=== PATIENT | male | born 1955 | race Caucasian/White ===

== ENCOUNTER 2019-11-09 07:01 | Day surgery (SDC) | payer BC ==
[2019-11-08 11:18] VITALS: BMI 30.7
[2019-11-09] MEDS ORDERED: Ketorolac Tromethamine 30 MG/ML VIAL ONE ×2 (08:03→11:16)
--- NOTE | 2019-11-09 08:23 | HP ---
SUBJECTIVE: Lissette is a 64-year-old male, who does ranch work, very active, has had a right inguinal hernia for some time. He has been able to reduce it, but it is becoming larger and more bothersome. Plan is to repair this robotically. There is some suspicion of a left inguinal hernia, but it is asymptomatic and equivocal findings on exam. Plan is to repair that with mesh if found. ALLERGIES: NONE. SOCIAL HISTORY: Tobacco, none. Alcohol, rarely/infrequently. Occasional beer. MEDICATIONS: 1. Hydralazine. 2. Hydrochlorothiazide. 3. A medication for restless legs syndrome. PAST SURGICAL HISTORY: Noncontributory. Colonoscopy 10 years ago. Hand surgery at 16 years of age. REVIEW OF SYSTEMS: Noncontributory. PHYSICAL EXAMINATION: GENERAL: 230 pounds, 72 inches, 31 BMI. VITAL SIGNS: Blood pressure 155/85, heart rate 87, and temperature 99 degrees. HEAD, EARS, EYES, NOSE, AND THROAT: Unremarkable. NEURO: GCS 15. Neurologically intact without deficit. LYMPH NODES: No lymphadenopathy of neck, axilla, or groins. LUNGS: Clear to auscultation. CARDIAC: Regular rate and rhythm without murmur or gallop. ABDOMEN: Soft and nontender. : Testicles normal. Right inguinal hernia present on standing, enlarged on Valsalva. Left groin without evident hernia, although slight bulge of the external ring of equivocal findings. EXTREMITIES: Unremarkable. ASSESSMENT AND PLAN: Right inguinal hernia. PLAN: 1. Robot laparoscopic mesh repair, outpatient, cord induration and swelling. Reassurance this will resolve with time discussed, questions answered. Risks of infection, bleeding, reoperation, and chronic pain discussed. 2. Possible left inguinal hernia, equivocal findings on exam, asymptomatic. We will plan evaluation laparoscopically/robotically and if present, plan mesh repair. Job ID: [id number]
[2019-11-09 08:33] LABS: #Basophils 0.1 thou/uL (0.0-0.2); #Eosinphils 0.1 thou/uL (0.0-0.7); #Monocytes 0.7 thou/uL (0.11-0.59); #Neutrophils 8.4 thou/uL (1.40-6.50); %Basophils 0.5 % (0.0-1.0); %Eosinophils 0.8 % (0.0-10.0); %Lymphocytes 17.6 % (21.0-51.0); %Monocytes 6.3 % (0.0-10.0); %Neutrophils 74.8 % (42.0-75.0); Hemoglobin 15.4 g/dL (14.0-18.0); Mean Corpuscular HGB CONC 32.8 g/dL (32.0-36.0); Mean Corpuscular Hemoglobin 31.2 pg (27.0-31.0); Mean Corpuscular Volume 95.1 fL (78.0-98.0); Mean Platelet Volume 8.4 fL (7.4-10.4); Platelet Count 216 thou/uL (130-400); RBC Distribution Width 12.3 % (11.5-14.5); Red Blood Cell (RBC) Count 4.93 mill/uL (4.70-6.10); White Blood Cell (WBC) Count 11.2 thou/uL (4.8-10.8)
[2019-11-09 08:42] LABS: Anion Gap 10 mmol/L (10-20); BUN (Urea Nitrogen) 24 mg/dL (8.4-25.7); Calc. Creatinine Clearance 128 mL/min (70-130); Calcium 9.4 mg/dL (7.8-10.44); Carbon Dioxide 30 mmol/L (23-31); Chloride 105 mmol/L (98-107); Estimated GFR-MDRD 89; Glucose 101 mg/dL (80-115); Potassium 4.3 mmol/L (3.5-5.1); Sodium 141 mmol/L (136-145)
[2019-11-09] MEDS ORDERED: Bupivacaine 0.25% HCL 30 ML VIAL ONE (08:48)
[2019-11-09] MEDS ORDERED: Midazolam HCl 2 mg/2 ml Vial ONE (08:52)
[2019-11-09] MEDS ORDERED: Fentanyl 100 MCG/2 ML VIAL ONE (08:52)
[2019-11-09] MEDS ORDERED: Lidocaine 1% w/Epinephrine 1:100K 20 ML VIAL ONE (09:28)
[2019-11-09] MEDS ORDERED: PROPOFOL 200 MG/20 ML VIAL ONE (11:16)
[2019-11-09] MEDS ORDERED: Rocuronium Bromide 10 MG/ML (10ML VIAL) ONE (11:16)
[2019-11-09] MEDS ORDERED: Lidocaine 1% PF 5 ML VIAL ONE (11:16)
[2019-11-09] MEDS ORDERED: PHENYLEPHRINE-NS 100 MCG/ML 10 ML SYRINGE ONE (11:16)
--- NOTE | 2019-11-09 17:58 | OP ---
DATE OF PROCEDURE: 11/09/2019 PREOPERATIVE DIAGNOSIS: Right inguinal hernia. POSTOPERATIVE DIAGNOSIS: Right inguinal hernia. PROCEDURE PERFORMED: Robot laparoscopic 3D Bard Max mesh repair, right inguinal hernia. ANESTHESIA: General, local of 0.5% Marcaine 30 mL mixed with 1% Xylocaine with epinephrine 30 mL. DESCRIPTION OF PROCEDURE: The patient was taken to the operating room, where under general anesthesia, Pino catheter was placed at the beginning of the procedure and removed at the end. Abdomen was clipped of hair, prepared with ChloraPrep, and draped in routine fashion. The patient was placed in slight Trendelenburg. A supraumbilical left to midline incision was made. Pneumoperitoneum to 15 mmHg was established with Veress needle, replaced with an 11 mm balloon port, and video laparoscope was inserted. Bilateral midabdominal lateral incisions were made, 8 mm ports were placed, right and left. Robot was docked. Instruments were applied under visualization. Robot right inguinal hernia repair was undertaken. An indirect hernia defect was noted on the right. Left groin was without hernia. Peritoneal flap was dissected free superiorly, inferiorly, laterally to the retroperitoneum, and medially to the Tien ligament visualizing it, and slightly posterior. Indirect hernia sac was dissected free carefully preserving the cord structures. Once it was adequately dissected free exposing 6 to 8 cm of the cord structures, the 3D Bard mesh, right, was placed in the preperitoneal space and secured to Tien ligament medially with 2-0 Vicryl suture and laterally to the anterior abdominal wall and superiorly with 2-0 Vicryl suture. Upon proper placement and good hemostasis noted, peritoneal flap was closed with continuous suture of 3-0 Stratafix. Once this was complete, hernia repair looked great. Pneumoperitoneum was reduced. All instruments were removed. Rectus fascia anteriorly was approximated with 0 Vicryl on UR needle, and skin incisions with interrupted subdermal 4-0 Monocryl, and [place] glue was applied. The patient tolerated the procedure well. Job ID: [id number]
== END 2019-11-09 13:20 | disposition home or self-care (01) ==
LOC: SDC 07:01
PROVIDERS: ATTEND Specialist
PROC: 0YU54JZ Supplement Right Inguinal Region with Synthetic Substitute, Percutaneous Endoscopic Approach (ICD-10-PCS; principal; 2019-11-09)
DX: K40.90 Unilateral inguinal hernia, without obstruction or gangrene, not specified as recurrent (principal); K42.9 Umbilical hernia without obstruction or gangrene; G25.81 Restless legs syndrome; I10 Essential (primary) hypertension; N40.0 Benign prostatic hyperplasia without lower urinary tract symptoms; Z87.891 Personal history of nicotine dependence; Z79.899 Other long term (current) drug therapy; Z89.012 Acquired absence of left thumb
CPT/HCPCS: 36415; 80048; 85025; 93005; 93010; C1781; J0131; J0690; J1885; J2001; J2250; J2704; J3010; S0020

== ENCOUNTER 2021-12-31 19:30 | Outpatient (CLI) | payer BC, MEDICARE | END 2021-12-31 19:31 | disposition home or self-care (01) | LOC: SLEEPLAB 19:30 | PROVIDERS: ATTEND Family Medicine | DX: G47.33 Obstructive sleep apnea (adult) (pediatric) (principal); M54.50 Low back pain, unspecified; G89.29 Other chronic pain; N40.0 Benign prostatic hyperplasia without lower urinary tract symptoms; G25.81 Restless legs syndrome; J40 Bronchitis, not specified as acute or chronic; E78.5 Hyperlipidemia, unspecified; I10 Essential (primary) hypertension | CPT/HCPCS: 95811 ==

== ENCOUNTER 2024-01-27 08:35 | Outpatient (CLI) | payer MEDICARE, OTHER | END 2024-01-27 08:36 | disposition home or self-care (01) | LOC: RAD 08:35 | PROVIDERS: ATTEND Internal Medicine | DX: R06.00 Dyspnea, unspecified (principal); K44.9 Diaphragmatic hernia without obstruction or gangrene | CPT/HCPCS: 71046 ==